=== PATIENT | female | born 1960 | race Caucasian/White ===

== ENCOUNTER → 2018-01-18 14:33 | Outpatient (CLI) | payer OTHER, MEDICAID, SELFPAY ==
[2018-01-18 15:00] LABS: BUN Creatinine Ratio 21.4 (6-22); Blood Urea Nitrogen 15 mg/dL (7-17); Calcium 9.9 mg/dL (8.4-10.2); Carbon Dioxide 29 mmol/L (22-32); Chloride 102 mmol/L (98-107); Estimated Glomerular Filt Rate > 60.0 mL/min (>60); Glucose 90 mg/dL (70-100); HEMOLYSIS < 15 (0-50); Potassium 4.4 mmol/L (3.4-5.1); Sodium 141 mmol/L (137-145)
== END ==
PROVIDERS: Family Provider Physician Assistant; PCP Physician Assistant; Visit Provider Physician Assistant
DX: I10 Essential (primary) hypertension (principal)
CPT/HCPCS: 36415; 80048

== ENCOUNTER → 2018-05-01 15:12 | Outpatient (CLI) | payer OTHER, MEDICAID, SELFPAY ==
--- NOTE | 2018-05-01 15:13 | DI.MG.S_ITS ---
BILATERAL DIGITAL SCREENING MAMMOGRAM 3D/2D WITH CAD: 05/01/2018 CLINICAL: Routine screening. Comparison is made to exams dated: 07/16/2013 mammogram, 12/31/2015 mammogram, and 08/02/2007 mammogram - [facility]. There are scattered fibroglandular elements in both breasts. Current study was also evaluated with a Computer Aided Detection (CAD) system. No significant masses, calcifications, or other findings are seen in either breast. There has been no significant interval change. IMPRESSION: NEGATIVE There is no mammographic evidence of malignancy. A 1 year screening mammogram is recommended. This exam was interpreted at Station ID: [id number]. NOTE: For mammograms, a report in lay terms will be sent to the patient. Approximately 15% of breast malignancies will not be visualized mammographically. In the management of a palpable breast mass, a negative mammogram must not discourage biopsy of a clinically suspicious lesion. Electronically Signed By: Shira tee/myriam:05/01/2018 16:06:23 letter sent: Normal Exam ACR BI-RADS Category 1: Negative 3341F
== END ==
PROVIDERS: Family Provider Physician Assistant; PCP Physician Assistant; Visit Provider Physician Assistant
DX: Z12.31 Encounter for screening mammogram for malignant neoplasm of breast (principal)
CPT/HCPCS: 77063; 77067

== ENCOUNTER → 2018-05-30 07:33 | Outpatient (CLI) | payer OTHER, SELFPAY ==
[2018-05-30 08:40] LABS: Alanine Aminotransferase 44 IU/L (9-52); Albumin 4.5 g/dL (3.5-5.0); Albumin Globulin Ratio 1.6 (1.0-2.8); Alkaline Phosphatase 62 U/L (38-126); Aspartate Aminotransferase 41 IU/L (14-36); Bilirubin Total 0.3 mg/dL (0.2-1.3); Bilirubin Unconjugated 0.1 mg/dL (0.0-1.1); Cholesterol 227 mg/dL (140-199); Globulin 2.9 g/dL (1.7-4.1); HDL Cholesterol 65 mg/dL (40-60); HEMOLYSIS < 15 (0-50); LDL Cholesterol Calculated 143 mg/dL (<100); Total Protein 7.4 g/dL (6.3-8.2); Triglycerides 93 mg/dL (35-150)
[2018-05-30 10:05] LABS: Thyroid Stimulating Hormone 3.39 uIU/mL (0.47-4.68)
== END ==
PROVIDERS: Family Provider Physician Assistant; PCP Physician Assistant; Visit Provider Physician Assistant
DX: E03.9 Hypothyroidism, unspecified (principal); Z51.81 Encounter for therapeutic drug level monitoring; E78.5 Hyperlipidemia, unspecified
CPT/HCPCS: 36415; 80061; 80076; 84443

== ENCOUNTER → 2018-11-08 12:18 | Outpatient (CLI) | payer OTHER, SELFPAY ==
[2018-11-08 13:55] LABS: Alanine Aminotransferase 46 IU/L (9-52); Albumin 4.7 g/dL (3.5-5.0); Albumin Globulin Ratio 1.7 (1.0-2.8); Alkaline Phosphatase 52 U/L (38-126); Aspartate Aminotransferase 40 IU/L (14-36); BUN Creatinine Ratio 14.3 (6-22); Bilirubin Total 0.6 mg/dL (0.2-1.3); Blood Urea Nitrogen 10 mg/dL (7-17); Calcium 10.1 mg/dL (8.4-10.2); Carbon Dioxide 26 mmol/L (22-32); Chloride 103 mmol/L (98-107); Cholesterol 224 mg/dL (140-199); Estimated Glomerular Filt Rate > 60.0 mL/min (>60); Globulin 2.8 g/dL (1.7-4.1); Glucose 79 mg/dL (70-100); HDL Cholesterol 60 mg/dL (40-60); HEMOLYSIS < 15 (0-50); LDL Cholesterol Calculated 131 mg/dL (<100); Potassium 5.2 mmol/L (3.4-5.1); Sodium 140 mmol/L (137-145); Total Protein 7.5 g/dL (6.3-8.2); Triglycerides 165 mg/dL (35-150)
[2018-11-08 14:21] LABS: Thyroid Stimulating Hormone 1.18 uIU/mL (0.47-4.68)
[2018-11-08 17:21] LABS: Creatinine Urine Random 71.6 mg/dL
[2018-11-08 17:27] LABS: Microalbumi Creatinin Ratio Ur 8.3 ug/mg CR (<30); Microalbumin Urine Random < 0.6 mg/dL (0-1.6)
== END ==
PROVIDERS: Family Provider Physician Assistant; PCP Physician Assistant; Visit Provider Physician Assistant
DX: E03.9 Hypothyroidism, unspecified (principal); E78.5 Hyperlipidemia, unspecified; I10 Essential (primary) hypertension; Z78.0 Asymptomatic menopausal state
CPT/HCPCS: 36415; 80053; 80061; 82043; 82570; 84443

== ENCOUNTER → 2019-04-27 07:42 | Outpatient (CLI) | payer OTHER, SELFPAY ==
[2019-04-27 09:32] LABS: Alanine Aminotransferase 46 IU/L (<35); Albumin 4.8 g/dL (3.5-5.0); Albumin Globulin Ratio 1.8 (1.0-2.8); Alkaline Phosphatase 59 U/L (38-126); Aspartate Aminotransferase 37 IU/L (14-36); Bilirubin Total 0.6 mg/dL (0.2-1.3); Blood Urea Nitrogen 14 mg/dL (7-17); Calcium 10.1 mg/dL (8.4-10.2); Carbon Dioxide 29 mmol/L (22-32); Chloride 103 mmol/L (98-107); Cholesterol 249 mg/dL (140-199); Estimated Glomerular Filt Rate > 60.0 mL/min (>60); Globulin 2.6 g/dL (1.7-4.1); Glucose 85 mg/dL (70-100); HDL Cholesterol 54 mg/dL (40-60); HEMOLYSIS < 15 (0-50); LDL Cholesterol Calculated 157 mg/dL (<100); Potassium 4.1 mmol/L (3.4-5.1); Sodium 139 mmol/L (137-145); Total Protein 7.4 g/dL (6.3-8.2); Triglycerides 189 mg/dL (35-150)
[2019-04-27 09:34] LABS: Thyroid Stimulating Hormone 2.41 uIU/mL (0.47-4.68)
[2019-04-27 09:36] LABS: Microalbumi Creatinin Ratio Ur 9.8 ug/mg CR (<30); Microalbumin Urine Random 1.2 mg/dL (0-1.6)
== END ==
PROVIDERS: PCP Physician Assistant; Visit Provider Physician Assistant
DX: E03.9 Hypothyroidism, unspecified (principal); E78.5 Hyperlipidemia, unspecified; I10 Essential (primary) hypertension
CPT/HCPCS: 36415; 80053; 80061; 82043; 82570; 84443

== ENCOUNTER → 2019-06-18 11:54 | Outpatient (CLI) | payer OTHER, SELFPAY ==
--- NOTE | 2019-06-18 | DI.MG.S_ITS ---
BILATERAL DIGITAL SCREENING MAMMOGRAM 3D/2D WITH CAD: 06/18/2019 CLINICAL: Routine screening. Comparison is made to exams dated: 05/01/2018 mammogram, 12/31/2015 mammogram, and 07/16/2013 mammogram - [facility]. There are scattered fibroglandular elements in both breasts. Current study was also evaluated with a Computer Aided Detection (CAD) system. No significant masses, calcifications, or other findings are seen in either breast. There has been no significant interval change. IMPRESSION: NEGATIVE There is no mammographic evidence of malignancy. A 1 year screening mammogram is recommended. This exam was interpreted at Station ID: [id number]. NOTE: For mammograms, a report in lay terms will be sent to the patient. Approximately 15% of breast malignancies will not be visualized mammographically. In the management of a palpable breast mass, a negative mammogram must not discourage biopsy of a clinically suspicious lesion. Electronically Signed By: Carlton Raygoza M.D. at/myriam:06/18/2019 12:42:27 letter sent: Normal Exam ACR BI-RADS Category 1: Negative 3341F
== END ==
PROVIDERS: PCP Physician Assistant; Visit Provider Physician Assistant
DX: Z12.31 Encounter for screening mammogram for malignant neoplasm of breast (principal)
CPT/HCPCS: 77063; 77067

== ENCOUNTER → 2019-08-14 07:23 | Outpatient (CLI) | payer OTHER, SELFPAY ==
[2019-08-14 08:09] LABS: Alanine Aminotransferase 35 IU/L (<35); Albumin 4.9 g/dL (3.5-5.0); Albumin Globulin Ratio 1.5 (1.0-2.8); Alkaline Phosphatase 58 U/L (38-126); Aspartate Aminotransferase 35 IU/L (14-36); BUN Creatinine Ratio 27.1 (6-22); Bilirubin Total 0.4 mg/dL (0.2-1.3); Blood Urea Nitrogen 19 mg/dL (7-17); Calcium 9.9 mg/dL (8.4-10.2); Carbon Dioxide 32 mmol/L (22-32); Chloride 103 mmol/L (98-107); Cholesterol 210 mg/dL (140-199); Estimated Glomerular Filt Rate > 60.0 mL/min (>60); Globulin 3.3 g/dL (1.7-4.1); Glucose 84 mg/dL (70-100); HDL Cholesterol 64 mg/dL (40-60); HEMOLYSIS < 15 (0-50); LDL Cholesterol Calculated 119 mg/dL (<100); Potassium 4.3 mmol/L (3.4-5.1); Sodium 142 mmol/L (137-145); Total Protein 8.2 g/dL (6.3-8.2); Triglycerides 135 mg/dL (35-150)
== END ==
PROVIDERS: PCP Physician Assistant; Referring Provider Physician Assistant; Visit Provider Physician Assistant
DX: Z51.81 Encounter for therapeutic drug level monitoring (principal); E78.2 Mixed hyperlipidemia; I10 Essential (primary) hypertension
CPT/HCPCS: 36415; 80053; 80061

== ENCOUNTER → 2020-01-28 11:09 | Outpatient (CLI) | payer OTHER, SELFPAY ==
--- NOTE | 2020-01-28 | DI.MRI.S_ITS ---
PROCEDURE: MR HEAD/BRAIN WO/W CON INDICATIONS: Headache TECHNIQUE: Noncontrast axial T1 spin echo, axial T2 fast spin echo, sagittal and axial FLAIR, coronal T2 fast spin echo, axial gradient echo, axial diffusion and ADC through the brain. After the administration of contrast, axial and coronal 3D VIBE or T1 spin echo with fat saturation through the brain. COMPARISON: [facility], MR, MR ANGIO HEAD WO CON, 01/28/2020, 11:25. FINDINGS: Image quality: Excellent. CSF Spaces: Basal cisterns are patent. No extra-axial fluid collections. Ventricles are normal in size and shape. Brain: No midline shift. No intracranial bleeds or masses. No abnormal intracranial enhancement. The brainstem appears normal. Diffusion-weighted images demonstrate no acute ischemic insults. No chronic ischemic insults. Normal intravascular flow voids are present. Focal calcification can be seen along the left aspect of the falx, as on series 9, image 9 and on series 10, image 17. This is not regarded to be frankly pathologic. No abnormal enhancement can be seen at this site. Skull and face: Calvarial marrow is normal in signal. Orbits appear normal. Sinuses: Sinuses and mastoids appear clear. Incidental note is made of mild leftward nasal septal deviation, with a leftward directed bony nasal septal spur. IMPRESSION: Unremarkable intracranial study, without an imaging explanation found for the patient's presenting history of headache. No masses or abnormal enhancement can be seen. No intracranial hemorrhage is seen. Dictated by: Chevy Harrison M.D. on 01/28/2020 at 11:21 Approved by: Chevy Harrison M.D. on 01/28/2020 at 11:23
--- NOTE | 2020-01-28 | DI.MRI.S_ITS ---
PROCEDURE: MR ANGIO HEAD WO CON INDICATIONS: Headache TECHNIQUE: Noncontrast axial 3-D [id number] MR angiogram, with 3-dimensional maximum intensity projection (MIP) reformats of the internal carotid arteries and posterior circulation then performed. COMPARISON: [facility], , MR HEAD/BRAIN WO/W CON, 01/28/2020, 11:37. FINDINGS: Image quality: Excellent. Anterior circulation: Intracranial internal carotid arteries demonstrate normal size and intraluminal flow signal. The flow within the paired anterior cerebral arteries is normal and symmetric. The flow within the middle cerebral arteries is normal and symmetric. The anterior communicating artery is faintly seen. No stenoses, occlusions, or aneurysms. Posterior circulation: Visualized portions of the vertebral arteries demonstrate normal caliber, and join to form a normal appearing basilar artery. There is a prominent right posterior communicating artery seen, with an accompanying diminutive right P1 segment. This is attributed to a type origin of the right posterior cerebral artery, which is considered to be a normal developmental variant of typically no clinical consequence. The flow within the posterior cerebral arteries is normal and symmetric. No stenoses, occlusions, or aneurysms. IMPRESSION: No significant intracranial arterial abnormality is detected. No aneurysms are seen. Dictated by: Chevy Harrison M.D. on 01/28/2020 at 11:20 Approved by: Chevy Harrison M.D. on 01/28/2020 at 11:21
== END ==
PROVIDERS: PCP Internal Medicine; Referring Provider Internal Medicine; Visit Provider Internal Medicine
DX: R51 Headache (principal)
CPT/HCPCS: 70544; 70553

== ENCOUNTER → 2020-07-15 15:20 | Outpatient (CLI) | payer OTHER, SELFPAY ==
--- NOTE | 2020-07-15 | DI.MG.S_ITS ---
BILATERAL DIGITAL SCREENING MAMMOGRAM 3D/2D WITH CAD: 07/15/2020 CLINICAL: Routine screening. Comparison is made to exams dated: 06/18/2019 mammogram, 05/01/2018 mammogram, and 12/31/2015 mammogram - [facility]. There are scattered fibroglandular elements in both breasts. Current study was also evaluated with a Computer Aided Detection (CAD) system. No significant masses, calcifications, or other findings are seen in either breast. There has been no significant interval change. IMPRESSION: NEGATIVE There is no mammographic evidence of malignancy. A 1 year screening mammogram is recommended. This exam was interpreted at Station ID: [id number]. NOTE: For mammograms, a report in lay terms will be sent to the patient. Approximately 15% of breast malignancies will not be visualized mammographically. In the management of a palpable breast mass, a negative mammogram must not discourage biopsy of a clinically suspicious lesion. Electronically Signed By: Vinod martinez/myriam:07/15/2020 16:20:42 letter sent: Normal Exam ACR BI-RADS Category 1: Negative 3341F
== END ==
PROVIDERS: PCP Internal Medicine; Referring Provider Internal Medicine; Visit Provider Internal Medicine
DX: Z12.31 Encounter for screening mammogram for malignant neoplasm of breast (principal)
CPT/HCPCS: 77063; 77067

== ENCOUNTER → 2020-09-15 09:10 | Outpatient (CLI) | payer OTHER, SELFPAY ==
[2020-09-15 13:34] LABS: COVID19 -Nasal RAPID Negative (Negative)
== END ==
PROVIDERS: PCP Student in an Organized Health Care Education/Training Program; Visit Provider Surgery
DX: Z20.822 Contact with and (suspected) exposure to COVID-19 (principal)
CPT/HCPCS: 87635; C9803

== ENCOUNTER 2020-09-16 08:07 | Day surgery (SDC) | payer OTHER, SELFPAY ==
--- NOTE | 2020-09-16 | PATH_ITS ---
[facility] Accession Number: [id number] . 01 Material submitted: . colon - FLAT POLYP AT 120CM . 01 Clinical history: . SDC . 02 Diagnosis: Colon, Flat Polyp at 120 cm, Biopsy: Tubular adenoma. MRV 09/18/2020 1010 Local . 02 Electronically signed: . Randee Benitez MD, Pathologist NPI- [id number] . 01 Gross description: . FLAT POLYP AT 120CM: Received in formalin is 1 fragment(s) of allan, soft tissue measuring 0.3 x 0.2 x 0.2 cm submitted entirely in 1 cassette(s) /DOMONIQUE 09/17/2020 2302 Local . 02 Pathologist provided ICD-10: D12.6 . 02 CPT . 577094 Performed at: 01 [facility] [address] [id number] MD Vinod Garcia MD Phone: [phone] Performed at: 02 [facility] [address] [place], [place] [id number] MD Randee Benitez MD Phone: [phone]
[2020-09-16] MEDS: SODIUM CHLORIDE 0.9% 1,000 ML 200 ML IV (08:23)
[2020-09-16 08:34] VITALS: BP 135/79; PULSE 60; RESP 14; TEMP 36.7; O2SAT 100
[2020-09-16 08:35] VITALS: BMI 32.9
--- NOTE | 2020-09-16 09:29 | PM.HP.1 ---
History of Present Illness History of Present Illness Date Patient Seen: 09/16/20 Time Patient Seen: 09:30 Chief complaint: SDC Narrative: This is a 60-year-old woman here for screening colonoscopy. She has a long history of chronic constipation. She has had anal fissures. She says her last colonoscopy was about 5 years ago. She denies any personal or family history of colon polyps or colon cancers. She reports that otherwise she is quite healthy. ROS: Thirteen system review is otherwise negative other than as mentioned below and in HPI. PE: GENERAL: Well groomed and cooperative. Appears stated age. Answers questions promptly and appropriately. Vital signs noted. HENT: Normocephalic, atraumatic. Hearing intact. EYES: Conjunctiva pink, sclera white, no periorbital swelling. CARDIOVASCULAR: Regular rate. No pedal edema. RESPIRATORY: Non-tachypneic, breathing comfortably on room air. GASTROINTESTINAL: Abdomen soft and non-distended GENITALURINARY: No flank tenderness. MUSCULOSKELETAL: Equal tone and mass bilaterally. SKIN: Warm, dry, soft, appropriate color for ethnicity. No other lesions, rashes, or wounds. NEURO: Alert and Oriented X 3. No gross sensory deficits, or cognitive issues. PSYCH: Appropriate affect and mood. Patient History Medical History Arthritis Chickenpox (Unknown) Colon polyps (Unknown) Fibroids (Unknown) GERD (gastroesophageal reflux disease) (Unknown) Hyperlipemia (Unknown) Hypertension (Unknown) Low back pain Postmenopausal Family & Social History Family History Father Heart disease Hypertension Stroke Mother Heart disease Hypertension Social History: household members spouse Tobacco & Substance use: Tobacco type cigarettes Smoking Status Current every day smoker alcohol intake former alcohol intake frequency a few times a month Substance Use Type does not use Meds Home Medications and Allergies Home Medications Medication Instructions Recorded Confirmed Type Aspirin 81 mg PO DAILY 01/18/18 09/16/20 History levothyroxine 50 mcg tablet 50 mcg PO QAM #90 tab 01/16/19 09/16/20 Rx tramadol 50 mg tablet See Rx Instructions PO BEDTIME #45 01/16/19 09/16/20 Rx tab estradiol 1 mg tablet 1 mg PO QDAY #90 tab 07/30/19 09/16/20 Rx rosuvastatin 10 mg tablet 10 mg PO BEDTIME #30 tab 04/07/20 09/16/20 Rx enalapril maleate 20 mg PO QDAY 09/16/20 09/16/20 History Allergies Allergy/AdvReac Type Severity Reaction Status Date / Time No Known Drug Allergies Allergy Verified 09/16/20 08:22 Exam Vital Signs (past 8 hours): - 09/16/20 08:34 Temperature 98.0 F Pulse Rate 60 Respiratory Rate 14 Blood Pressure 135/79 Pulse Oximetry 100 Oxygen Delivery Method Room Air Assessment & Plan Assessment and plan (1) Chronic constipation: Status: Acute (2) Anal fissure: Status: Acute Assessment & Plan narrative: Risks and benefits of screening colonoscopy and possible polypectomy were discussed with the patient including risk of bleeding, perforation, need for additional procedures, risks of anesthesia. The patient desires to proceed with the colonoscopy procedure. COVID-19 COVID-19 status: Negative Result date/Date tested (Pos, Neg/Pending): 09/15/20 Time Spent With Patient Time with patient: 15-24 minutes Quality VTE Deep Vein Thrombosis/Pulmonary Embolism Present on Admission: No MIPS - Admit Advanced Care Plan / Current Medications Measures: #47 ? Advanced Care Plan Clinician documentation instruction: document at admission. [] I confirmed that the patient's Advance Care Plan is present, code status is documented, or surrogate decision maker is listed in the patient?s medical record. [SATISFIES MIPS PERFORMANCE] If Yes, Stop Here [] The patient?s Advance Care plan is not present because: (select) [MIPS PERFORMANCE EXCEPTION/EXCLUSION] [] I confirmed today that the patient does not wish or was not able to name a surrogate decision maker or provide an Advance Care Plan. [] Hospice care is currently being provided or has been provided this calendar year [] I did NOT confirm today the presence of an Advance Care Plan or surrogate decision maker documented within the patient's medical record. [DOES NOT SATISFY MIPS PERFORMANCE] #130 - Documentation of Current Medications in the Medical Record Clinician documentation instruction: use macro the first time you see a patient. [] I have utilized all available immediate resources to obtain, update, or review the patient?s current medications. [SATISFIES MIPS PERFORMANCE] If Yes, Stop Here [] The patient is not eligible for medication reconciliation; the patient is in an emergent medical situation where delaying treatment would jeopardize the patient?s health. [MIPS PERFORMANCE EXCEPTION/EXCLUSION] [] I did NOT confirm, update or review the patient's current list of medications today. [DOES NOT SATISFY MIPS PERFORMANCE] MIPS - CL Central Venous Catheter Placement Measure: #76 ? Prevention of Central Venous Catheter (CVC) ? Related Bloodstream Infection Clinician documentation instruction: use macro every time you place a central line. [] All elements of Maximal Sterile Barrier Technique, including hand hygiene, skin prep, and sterile ultrasound technique (if used) were followed. [SATISFIES MIPS PERFORMANCE] If Yes, Stop Here [] If ?No?, the medical reason all elements were NOT used for medical reason [] (ex. emergent condition). [] Maximal Sterile Barrier Technique was not followed, no reason provided [DOES NOT SATISFY MIPS PERFORMANCE] MIPS - DC Heart Failure Measures: #5 - Heart Failure (HF): Angiotensin-Converting Enzyme (DEO) Inhibitor or Angiotensin Receptor Barbara (ARB) Therapy for Left Ventricular Systolic Dysfunction (LVSD) and #8 - Heart Failure (HF): Beta-Barbara Therapy for Left Ventricular Systolic Dysfunction (LVSD) Clinician documentation instruction: use macro at every CHF discharge. [] The patient has current or prior documentation of left ventricular ejection fraction (LVEF) less than 40%, or moderate or severely depressed left ventricular systolic function. Answer both: [SATISFIES MIPS PERFORMANCE] [] The patient was prescribed or already taking an Angiotensin-Converting Enzyme (DEO) Inhibitor, or Angiotensin Receptor Barbara (ARB). [] The patient was prescribed or already taking a beta-barbara. If Yes to Both, Stop Here [] Patient not prescribed/taking: [MIPS PERFORMANCE EXCEPTION/EXCLUSION] [] DEO or ARB for medical/patient/system reason(s) including [] (ex. allergy, intolerance, contraindication) [] Beta-barbara for medical/patient/system reason(s) including [] (ex. allergy, intolerance, contraindication) [] Patient not prescribed/taking: [DOES NOT SATISFY MIPS PERFORMANCE] [] DEO or ARB, no reason given [] Beta-barbara, no reason given
--- NOTE | 2020-09-16 09:32 | P.OP.ENDO_ITS ---
Operative Date/Time/Diagnoses Date of procedure: 09/16/20 Time of procedure: 09:32 Pre-op diagnosis: Chronic constipation, anal fissure, due for screening colonoscopy Post-op diagnosis: other (Single polyp, benign appearing) Procedure & Clinicians Study performed: Colonoscopy Procedural sedation performed by the endoscopist Polypectomy with Jumbo forceps Same procedure as scheduled: Yes Indications: Due for screening colonoscopy Surgeon: Morena Gallo Procedure Notes SCOAP/Timeout: Performed Procedure in detail: The patient was brought to the room and placed in left lateral decubitus position with all bony prominences padded. A time-out was performed and then the patient was given procedural sedation starting with 4 mg of Versed [id number]] mcg of fentanyl. A total of 5 mg of Versed and 200 micro g of fentanyl were given for the entire procedure. Vitals were monitored throughout the procedure and remained stable. Once adequately sedated, the procedure was begun. A rectal exam was performed revealing no abnormalities. The colonoscope was then introduced to the rectum and advanced to the cecum in the usual fashion.]The cecum was identified by the appendiceal orifice, the mucosal tri- fold, and the ileocecal valve. The scope was then retracted while rotating side to side and examining each mucosal fold. The prep was not adequate to see anything smaller than 5 mm. There was some adherent stool to the leach of the colon. We were not able to wash it down because it was very bulky and fibrous. There was a single polyp found at 120 cm and removed with Jumbo forceps. It was adenomatous/benign-appearing. Moderate diverticulosis was seen in the sigmoid colon. 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 The scope was then withdrawn from the rectum the procedure was concluded. The patient tolerated the procedure well and was transferred to the PACU in stable condition. Scope withdrawal time: 11 Sedation minutes: 20 Findings: diverticulosis and polyp Specimen(s): other (Single polyp) Complications: none Impression: Diverticulosis, small benign-appearing polyp Post-procedure Recommendations: Colonscopy in 5 years (Due to prep inadequate to see anything smaller than 5 mm. On future colonoscopy low residual diet for 1 week prior to scope, and 2 day prep should be done) and Other recommendation (Consider referral to Colorectal surgery or gastroenterology for evaluation and treatment of dysmotility) Follow up: as needed Disposition: PACU
[2020-09-16] MEDS: MIDAZOLAM 5 MG/5 ML VIAL IV (09:45)
[2020-09-16] MEDS: fentaNYL 250 MCG/5 ML INJ IV (09:47)
[2020-09-16 10:10] VITALS: BP 96/50; PULSE 51; RESP 19; TEMP 36.5; O2SAT 98
[2020-09-16 10:14] VITALS: BP 107/71; PULSE 69; RESP 14; TEMP 36.5; O2SAT 100
[2020-09-16 10:20] VITALS: BP 113/71; PULSE 59; RESP 16; TEMP 36.5; O2SAT 100
[2020-09-16 10:31] VITALS: BP 103/67; PULSE 52; RESP 16; TEMP 36.2; O2SAT 98
--- NOTE | 2020-09-16 11:08 | SUR.PHASEII ---
1057 Denies pain/nausea/light-headedness. Ambulated to bathroom, voided. Stable on feet. Declined more fluids in OPD while waiting for spouse to arrive. Pleasant and appreciative.
== END 2020-09-16 10:57 | disposition home or self-care (01) ==
PROVIDERS: PCP Student in an Organized Health Care Education/Training Program; Referring Provider Surgery; Visit Provider Surgery
PROC: 0DJD8ZZ Inspection of Lower Intestinal Tract, Via Natural or Artificial Opening Endoscopic (ICD-10-PCS; CPT 45378; principal; 2020-09-16 09:15)
DX: Z12.11 Encounter for screening for malignant neoplasm of colon (principal); Z86.010 Personal history of colon polyps; K59.09 Other constipation; K60.1 Chronic anal fissure; I10 Essential (primary) hypertension; E78.5 Hyperlipidemia, unspecified; K21.9 Gastro-esophageal reflux disease without esophagitis; Z53.09 Procedure and treatment not carried out because of other contraindication; K57.30 Diverticulosis of large intestine without perforation or abscess without bleeding; K64.0 First degree hemorrhoids; D12.6 Benign neoplasm of colon, unspecified
CPT/HCPCS: 45380; 99152; J2250; J3010

== ENCOUNTER → 2020-11-21 11:36 | Outpatient (CLI) | payer OTHER, SELFPAY ==
--- NOTE | 2020-11-21 11:37 | DI.US.S_ITS ---
PROCEDURE: US PELVIC COMPLETE INDICATIONS: PMB TECHNIQUE: Real-time scanning was performed of the pelvic organs, with image documentation. Additional endovaginal scanning was necessary due to incomplete visualization of the adnexal and endometrial structures by transabdominal scanning. COMPARISON: [facility], , PELVIC COMPLETE, 09/30/2015, 14:18. [facility], , PELVIC COMPLETE, 09/26/2014, 16:43. FINDINGS: Uterus: Uterus is normal in size at 7.8 x 8.8 x 10.0 cm. The endometrium measures 8.9 mm in combined thickness. Uterine fibroids are present, measuring on the right anteriorly in the intramural space up to 4.8 cm and on the left/midline posteriorly in the intramural space measuring up to 7.2 cm. Ovaries: Not seen bilaterally. Other: No pathologic free abdominal or pelvic fluid. IMPRESSION: The ovaries are not seen bilaterally, which is likely a manifestation of postmenopausal ovarian atrophy and overlying bowel gas. Two separate fibroids are present, which produce shadowing and heterogeneity that reduces quality of visualization of the endometrial lining. The endometrial lining itself measures up to 9 mm and this is considered an abnormal finding especially in the setting of postmenopausal bleeding. Early endometrial carcinoma would be suspected, gynecological consultation should be obtained in biopsy likely is warranted. Dictated by: Alonzo Fernandes M.D. on 11/21/2020 at 16:56 Approved by: Alonzo Fernandes M.D. on 11/21/2020 at 17:02
== END ==
PROVIDERS: PCP Student in an Organized Health Care Education/Training Program; Referring Provider Obstetrics & Gynecology; Visit Provider Obstetrics & Gynecology
DX: N95.0 Postmenopausal bleeding (principal); R93.89 Abnormal findings on diagnostic imaging of other specified body structures; D25.1 Intramural leiomyoma of uterus
CPT/HCPCS: 76830; 76856

== ENCOUNTER → 2021-01-01 07:25 | Outpatient (CLI) | payer OTHER, SELFPAY ==
[2021-01-01 08:43] LABS: Add Manual Diff / Slide Review NO; Basophils Absolute Auto 0 /uL (0-100); Basophils Percent Auto 0.4 % (0-2); Eosinophils Absolute Auto 400 /uL (0-450); Eosinophils Percent Auto 4.8 % (2-4); Hematocrit 36.5 % (36-46); Hemoglobin 12.4 g/dL (12.0-16.0); Lymphocytes Absolute Auto 3700 /uL (1100-4500); Lymphocytes Percent Auto 42.8 % (25-40); Mean Corpuscular HGB Conc 33.8 % (30-36); Mean Corpuscular Hemoglobin 29.7 PG (26-34); Mean Corpuscular Volume 87.7 fL (80-100); Monocytes Absolute Auto 600 /uL (0-900); Monocytes Percent Auto 6.7 % (3-14); Neutrophils Absolute Auto 4000 /uL (1500-7000); Neutrophils Percent Auto 45.3 % (50-75); Platelet Count 225 X10^3/uL (150-400); Red Blood Cell Count 4.17 X10^6/uL (4.0-5.2); Red Cell Distribution Width 13.2 % (11.6-14.8); White Blood Cell Count 8.7 X10^3/uL (4.5-11.0)
== END ==
PROVIDERS: PCP Student in an Organized Health Care Education/Training Program; Referring Provider Obstetrics & Gynecology; Visit Provider Obstetrics & Gynecology
DX: N95.0 Postmenopausal bleeding (principal); R53.83 Other fatigue
CPT/HCPCS: 36415; 85025

== ENCOUNTER 2021-02-20 08:40 | Day surgery (SDC) | payer OTHER, SELFPAY ==
[2021-01-27 08:11] VITALS: BMI 33.8
[2021-02-20] VITALS (7 sets, daily range): BP systolic 124–152; BP diastolic 63–78; PULSE 49–57; RESP 12–16; TEMP 36.1–36.6; O2SAT 97–100; BMI 33.8
--- NOTE | 2021-02-20 | PATH_ITS ---
[facility] Accession Number: [id number] . 01 Material submitted: . PART A: endometrium - ENDOMETRIAL POLYP PART B: endometrium - ENDOMETRIAL CURETINGS . 02 Diagnosis: A. Endometrial Polyp: Portions of weakly proliferative endometrium; negative for glandular hyperplasia, cytologic atypia, or malignancy. Most tissue fragments demonstrate associated myometrium negative for atypia or malignancy. . B. Endometrial Curettings: Portions of weakly proliferative endometrial tissue with patchy regions of stromal breakdown; negative for glandular hyperplasia, cytologic atypia, or malignancy. Squamous mucosa with reactive changes; negative for squamous dysplasia or malignancy. V 02/23/2021 1410 Local . 02 Electronically signed: . Shirley Baird MD, Pathologist NPI- [id number] . 01 Gross description: . Part A: ENDOMETRIAL POLYP: Received in formalin are multiple fragment(s) of allan, soft tissue measuring 1.5 x 0.6 x 0.4 cm in aggregate submitted entirely in 1 cassette(s) Part B: ENDOMETRIAL CURETINGS: Received in formalin are multiple fragment(s) of allan, soft tissue measuring 3.0 x 0.5 x 0.2 cm in aggregate submitted entirely in 1 cassette(s) /NIXON 02/21/2021 0534 Local . 02 Pathologist provided ICD-10: N95.0 . 02 CPT . 533912, [id number] Performed at: 01 [facility] [address], [place], [place] [id number] MD Vinod Garcia MD Phone: [phone] Performed at: 02 [facility] [address] , [place], [place] [id number] MD Randee Benitez MD Phone: [phone]
[2021-02-20] MEDS: LACTATED RINGERS 1,000 ML 42 ML IV (10:09)
--- NOTE | 2021-02-20 11:36 | PM.PREOP ---
Pre-operative Note COVID-19 COVID-19 status: Negative Result date/Date tested (Pos, Neg/Pending): 02/20/21 Interval Note History & Physical reviewed/Exam performed by Physician: Yes Changes to H&P: No
--- NOTE | 2021-02-20 12:16 | SUR.OPER ---
Lithotomy on padded OR bed, head on pillow, arms secured on padded arm boards at <90 degrees abduction. Legs secured in padded yellow fins stirrups.
--- NOTE | 2021-02-20 12:42 | P.OP_ITS ---
Operative Date/Time/Diagnoses Date of procedure: 02/20/21 Time of procedure: 12:42 Pre-op diagnosis: Postmenopausal bleeding Post-op diagnosis: same Procedure & Clinicians Procedure: Hysteroscopy with resection of polyps and D&C Same procedure as scheduled: Yes Indications: Postmenopausal bleeding Surgeon: Tabatha Lino Click Yes if Unassisted: Yes Anesthesia Type: General Operative Notes Findings: 2 areas of polyps otherwise normal appearing endometrium Closure Type: not applicable Specimen(s): other (Endometrial polyps and uterine curettage) Estimated Blood Loss (mL): 5 Blood products transfused: none Procedure in detail: The patient was brought to the operating room where she underwent general anesthesia. She was placed in low stirrups. She was prepped and draped in usual sterile fashion with pulsatile stockings in place and functional, warming in place. No antibiotics were indicated. A check system was reviewed with the staff in the room prior to beginning the case. Her bladder was drained with in and out catheter. A single-tooth tenaculum was placed on the anterior lip of the cervix and the uterus dilated to #8 Hegar dilator. The hysteroscope was placed into the uterus with a sorbitol solution running in under constant hood ction. The resecting loop set at 80 W of cutting was used to resect the polyps down to the level of the endometrium. A endometrial curettage was performed. The polyps and the endometrial curettage were sent to pathology. The patient went to recovery room in good condition counts of instruments and sponges were correct. The sorbitol solution I=O approximately 1200 mL. Complications: none Post-operative Disposition: same day surgery Plan for aftercare: Home when awake and stable
[2021-02-20] MEDS: OXYCODONE/ACETAMINOPHEN 5/325 TABLET 1 TAB PO (13:12)
[2021-02-20] MEDS: ONDANSETRON 4 MG/2 ML INJ IV (13:13)
== END 2021-02-20 13:25 | disposition home or self-care (01) ==
PROVIDERS: Specialist; PCP Student in an Organized Health Care Education/Training Program; Referring Provider Obstetrics & Gynecology; Visit Provider Obstetrics & Gynecology
PROC: 0UDB8ZZ Extraction of Endometrium, Via Natural or Artificial Opening Endoscopic (ICD-10-PCS; CPT 58558; principal; 2021-02-20 11:45)
DX: N95.0 Postmenopausal bleeding (principal); Z01.812 Encounter for preprocedural laboratory examination; Z20.822 Contact with and (suspected) exposure to COVID-19; E03.9 Hypothyroidism, unspecified; I10 Essential (primary) hypertension; E78.5 Hyperlipidemia, unspecified
CPT/HCPCS: 58558; 87635; J1100; J1885; J2250; J2405; J2704; J3010

== ENCOUNTER → 2021-02-20 09:02 | Outpatient (CLI) | payer OTHER, SELFPAY ==
[2021-02-20 09:34] LABS: COVID19 -Nasal RAPID Negative (Negative)
== END ==
PROVIDERS: PCP Student in an Organized Health Care Education/Training Program; Visit Provider Specialist
DX: Z01.812 Encounter for preprocedural laboratory examination (principal); Z20.822 Contact with and (suspected) exposure to COVID-19
CPT/HCPCS: 87635

== ENCOUNTER → 2021-06-24 18:13 | Outpatient (ROUT) | payer OTHER, SELFPAY ==
[2021-06-24 18:24] LABS: Alanine Aminotransferase 35 IU/L (<35); Albumin 4.7 g/dL (3.5-5.0); Albumin Globulin Ratio 1.7 (1.0-2.8); Alkaline Phosphatase 50 U/L (38-126); Amylase 63 U/L (30-110); Aspartate Aminotransferase 40 IU/L (14-36); BUN Creatinine Ratio 21.8 (6-22); Bilirubin Total 0.4 mg/dL (0.2-1.3); Blood Urea Nitrogen 17 mg/dL (7-17); Calcium 10.5 mg/dL (8.4-10.2); Carbon Dioxide 31 mmol/L (22-32); Chloride 105 mmol/L (98-107); Estimated Glomerular Filt Rate > 60.0 mL/min (>60); Globulin 2.8 g/dL (1.7-4.1); Glucose 84 mg/dL (80-110); HEMOLYSIS 15 (0-50); Hematocrit 39.3 % (36-46); Hemoglobin 13.2 g/dL (12.0-16.0); Lipase 486 U/L (23-300); Mean Corpuscular HGB Conc 33.7 % (30-36); Mean Corpuscular Hemoglobin 28.6 PG (26-34); Platelet Count 220 X10^3/uL (150-400); Red Blood Cell Count 4.62 X10^6/uL (4.0-5.2); Red Cell Distribution Width 13.7 % (11.6-14.8); Sodium 142 mmol/L (137-145); Total Protein 7.5 g/dL (6.3-8.2); White Blood Cell Count 10.3 X10^3/uL (4.5-11.0)
== END ==
PROVIDERS: PCP Student in an Organized Health Care Education/Training Program; Visit Provider Student in an Organized Health Care Education/Training Program
DX: R10.31 Right lower quadrant pain (principal)
CPT/HCPCS: 80053; 82150; 83690; 85027

== ENCOUNTER → 2021-07-07 12:15 | Outpatient (CLI) | payer OTHER, SELFPAY ==
--- NOTE | 2021-07-07 12:17 | DI.CT.S_ITS ---
PROCEDURE: CT ABDOMEN PELVIS W CON INDICATIONS: Right lower quadrant abdominal pain TECHNIQUE: After the administration of oral and intravenous contrast, axial sections were acquired from the lung bases to the pubic symphysis. Coronal and sagittal reformats were performed. For radiation dose reduction, the following was used: automated exposure control, adjustment of mA and/or kV according to patient size. COMPARISON:[facility], , PELVIC COMPLETE, 11/21/2020, 11:58. FINDINGS: Image quality: Excellent. Lung bases: Unremarkable. Heart: No significant findings. ABDOMEN: Liver: Unremarkable. Gallbladder: Is contracted Biliary ducts: Unremarkable. Pancreas: Unremarkable. Spleen: Unremarkable. Adrenal Glands: Unremarkable. Kidneys and Ureters: Unremarkable. Stomach and Bowel: Small hiatal hernia. Stomach, small bowel loops, and colon are unremarkable. Normal appendix is present. Peritoneum: No abnormal intraperitoneal fluid. No free air. Ventral Wall: No hernia. Abdominal Nodes: No retroperitoneal or mesenteric adenopathy by size criteria. Vessels: Aorta and inferior vena cava are normal in size. PELVIS: Pelvic Organs: There is a subserosal left posterior uterine mass measuring roughly 86 mm diameter. Bladder: Unremarkable. Pelvic Nodes: No enlarged lymph nodes. Miscellaneous: No inguinal hernias are seen. Bones: Unremarkable. IMPRESSION: 1. No acute process. 2. Normal appendix. 3. Pro uterine fibroid. Dictated by: Briseida Alvarado M.D. on 07/07/2021 at 13:59 Approved by: Briseida Alvarado M.D. on 07/07/2021 at 14:03
== END ==
PROVIDERS: PCP Student in an Organized Health Care Education/Training Program; Referring Provider Student in an Organized Health Care Education/Training Program; Visit Provider Student in an Organized Health Care Education/Training Program
DX: D25.2 Subserosal leiomyoma of uterus (principal); K44.9 Diaphragmatic hernia without obstruction or gangrene; R10.11 Right upper quadrant pain
CPT/HCPCS: 74177

== ENCOUNTER → 2021-08-28 11:53 | Outpatient (CLI) | payer OTHER, SELFPAY ==
--- NOTE | 2021-08-28 11:55 | DI.US.S_ITS ---
PROCEDURE: US PELVIC COMPLETE INDICATIONS: POSTMENOPAUSAL BLEEDING TECHNIQUE: Real-time scanning was performed of the pelvic organs, with image documentation. Additional endovaginal scanning was necessary due to incomplete visualization of the adnexal and endometrial structures by transabdominal scanning. COMPARISON: [facility], US, US PELVIC COMPLETE, 11/21/2020, 11:58. FINDINGS: Uterus: Uterus is anteverted and enlarged in size at 10.1 x 8.3 x 8.8 cm. The myometrium is heterogeneous. The endometrium is ill-defined and cannot be accurately assessed. There are 2 intramural fibroids, largest measuring 8.0 x 5.7 x 6.2 cm and the smaller 4.4 x 5.6 x 5.3 cm, which appears similar to prior examination. Ovaries: Ovaries are not visualized. No adnexal masses seen. Other: No pathologic free abdominal or pelvic fluid. IMPRESSION: 1. 2 intramural fibroids with the largest measuring up to 8.0 cm, similar to prior examination. 2. The endometrial complex is ill-defined and cannot be accurately assessed. If indicated, pre and post contrast gynecologic protocol MRI could be performed for further assessment. We strive to produce accurate, complete, and clear reports of imaging services. To assist us in improving patient care, this report was composed using standard report templates and voice recognition software. Therefore, it may contain abnormal punctuation, insertions and/or omissions. Occasional wrong-word or sound-alike substitutions may occur. Though we review the report and make efforts to correct it, we do recommend that the report be read carefully in proper context to recognize any text inaccuracies. Dictated by: Lauri Navarro [facility] Interpreted: Inocente Barnett MD on 08/28/2021 at 13:38 Transcribed by: JULIANE on 09/01/2021 at 14:14 Approved by: Inocente Barnett M.D. on 09/10/2021 at 9:52
== END ==
PROVIDERS: PCP Student in an Organized Health Care Education/Training Program; Referring Provider Obstetrics & Gynecology; Visit Provider Obstetrics & Gynecology
DX: N95.0 Postmenopausal bleeding (principal); D25.1 Intramural leiomyoma of uterus
CPT/HCPCS: 76830; 76856

== ENCOUNTER → 2022-08-25 08:12 | Outpatient (CLI) | payer OTHER, SELFPAY ==
--- NOTE | 2022-08-25 | DI.MG.S_ITS ---
BILATERAL DIGITAL SCREENING MAMMOGRAM 3D/2D WITH CAD: 08/25/2022 CLINICAL: Routine screening. Comparison is made to exams dated: 06/18/2019 mammogram, 07/15/2020 mammogram, and 05/01/2018 mammogram - [facility]. There are scattered areas of fibroglandular density in both breasts (category b / 25%-50% glandular tissue). Current study was also evaluated with a Computer Aided Detection (CAD) system. No significant masses, calcifications, or other findings are seen in either breast. There has been no significant interval change. IMPRESSION: NEGATIVE There is no mammographic evidence of malignancy. A 1 year screening mammogram is recommended. Based on the Tyrer Cuzick model (a risk assessment model) the patient's lifetime risk is 6.1% and her 10 year risk is 2.5%. According to the ACR, ACS, and NCCN guidelines, an annual breast MRI exam along with mammogram is recommended if the patient's lifetime risk is 20% or greater. This exam was interpreted at Station ID: [id number]. NOTE: For mammograms, a report in lay terms will be sent to the patient. Approximately 15% of breast malignancies will not be visualized mammographically. In the management of a palpable breast mass, a negative mammogram must not discourage biopsy of a clinically suspicious lesion. Electronically Signed By: Nathan Delong M.D., jr/myriam:08/26/2022 12:46:53 letter sent: Normal Exam ACR BI-RADS Category 1: Negative 3341F
== END ==
PROVIDERS: PCP Student in an Organized Health Care Education/Training Program; Referring Provider Student in an Organized Health Care Education/Training Program; Visit Provider Student in an Organized Health Care Education/Training Program
DX: Z12.31 Encounter for screening mammogram for malignant neoplasm of breast (principal)
CPT/HCPCS: 77063; 77067

== ENCOUNTER 2022-12-31 11:08 | Emergency (ER) | payer OTHER, SELFPAY ==
[2022-12-31 11:16] VITALS: BP 139/77; PULSE 58; RESP 18; TEMP 36.4; O2SAT 100; BMI 29.0
--- NOTE | 2022-12-31 11:20 | DI.RAD.S_ITS ---
PROCEDURE: XR HAND LT MIN 3V INDICATIONS: Patient punctured 4th finger TECHNIQUE: 3 views of the hand(s) acquired. COMPARISON: [facility], , HAND 3V LEFT, 01/22/2015, 14:40. FINDINGS: Bones: No fractures or dislocations. Carpal bones are normally aligned. No suspicious bony lesions. Moderate osteoarthritic changes are present, most pronounced at the triscaphe joint and the 1st carpometacarpal joint. Soft tissues: There is a 0.8 cm calcified density in the radial aspect of the hand just proximal to the 1st metacarpal. IMPRESSION: 1. Moderate osteoarthritis. 2. A 0.8 cm calcified density within the soft tissue just proximal the 1st metacarpal. Etiology uncertain. Consider advanced imaging such as MRI if clinically indicated. Dictated by: Radha Aponte M.D. on 12/31/2022 at 12:49 Approved by: Radha Aponte M.D. on 12/31/2022 at 12:52
[2022-12-31] MEDS: TET,DIPH,PERTUSS(ACELL),VAC/PF 0.5 ML SYRINGE IM (11:59)
--- NOTE | 2022-12-31 12:16 | ED.UPPEXIN ---
HPI - Extremity Injury (Upper) General Chief Complaint: Extremity Injury, Upper Stated Complaint: lac poss stitches Time Seen by Provider: 12/31/22 11:13 Source: patient Mode of arrival: Ambulatory History of Present Illness HPI narrative: 62-year-old female smoker with history of hypertension presents with an accidental laceration to the ring finger of her left hand. She was using a sharp knife to cut through some plastic when it slipped and cut her on the palmar surface of her finger. She has some bleeding and pain but denies any numbness or tingling. She has full range of motion. Her tetanus will need to be updated today Related Data Home Medications Medication Instructions Recorded Confirmed enalapril maleate 10 mg tablet 20 mg PO QDAY 09/16/20 08/31/21 aspirin 81 mg tablet,delayed 81 mg PO DAILY 01/27/21 08/31/21 release (Jaqueline Low Dose Aspirin) Previous Rx's Medication Instructions Recorded levothyroxine 50 mcg tablet 50 mcg PO QAM #90 tabs 01/16/19 rosuvastatin 10 mg tablet 10 mg PO BEDTIME #30 tabs 04/07/20 estradiol 1 mg tablet 1 mg PO QDAY #90 tabs 04/06/21 progesterone micronized 100 mg 100 mg PO DAILY #90 caps 08/31/21 capsule cephalexin 500 mg capsule 500 mg PO Q6H 7 days #28 caps 12/31/22 Allergies Allergy/AdvReac Type Severity Reaction Status Date / Time No Known Drug Allergies Allergy Verified 08/31/21 11:31 Review of Systems Review of Systems Narrative: GENERAL: Denies chills, fatigue, malaise, fever, sweats. HEENT: Denies sinus pain, ear pain, sore throat, difficulty swallowing, dizziness. RESPIRATORY: Denies dyspnea, cough, wheezing, hemoptysis, sputum. CARDIOVASCULAR: Denies chest pain, palpitations, orthopnea, edema, GASTROINTESTINAL: Denies nausea, vomiting, abdominal pain, diarrhea, constipation, melena. : Denies dysuria, frequency, incontinence, hematuria, urinary retention. MUSCULOSKELETAL: See HPI SKIN: See HPI NEUROLOGIC: Denies weakness, headache, numbness, change in speech, confusion, seizures, incoordination. PSYCHIATRIC: No concerning psychosocial issues. 12 point review of systems is negative except for those stated above Patient History Medical History Arthritis Chickenpox (Unknown) Colon polyps (Unknown) Fibroids (Unknown) GERD (gastroesophageal reflux disease) (Unknown) Hyperlipemia (Unknown) Hypertension (Unknown) Low back pain Postmenopausal Family History Father Heart disease Hypertension Stroke Mother Heart disease Hypertension Social History household members: spouse Smoking Status: Current every day smoker second hand exposure: No alcohol intake: current substance use type: does not use Smoking Status: Current every day smoker alcohol intake frequency: holidays/special occasions only Substance Use Type: does not use Exam Narrative Exam Narrative: GEN: AOx3 and in mild distress EYES: Pupils are equal, round, and reactive to light and accommodation. Extraoccular muscles are intact bilaterally. There is no subconjunctival hemorrhage or exudate. CHEST: Lungs are clear to auscultation bilaterally and free of wheezes, rales, or rhonchi. Heart rate is regular rhythm, there are no murmurs, clicks, rubs, or gallops. There is no chest wall tenderness. ABD: Abdomen is soft and nontender. There is no guarding or rebound. Bowel sounds are normal in all 4 quadrants. There is no mass or organomegaly. EXT: 1 cm laceration on the palmar surface of left ring finger, there is a very small through and through component on the opposite side. No active bleeding, no obvious foreign body, patient has sensation intact. She has full strength and range of motion. Full painless ROM of all extremities with no loss of sensation or strength. SKIN: Warm, pink, and dry. No erythema or rash Initial Vital Signs Initial Vital Signs: Vital Signs Temperature 97.6 F 12/31/22 11:16 Pulse Rate 58 L 12/31/22 11:16 Respiratory Rate 18 12/31/22 11:16 Blood Pressure 139/77 12/31/22 11:16 Pulse Oximetry 100 12/31/22 11:16 Oxygen Delivery Method Room Air 12/31/22 11:16 Course Orders Ordered: ED Orders 12/31/22 11:20 XR hand LT min 3V Stat Discontinued Medications Diphtheria/Tetanus/Acell Pertussis (Tet,Diph,Pertuss(Acell),Vac/Pf 0.5 Ml Syringe) 0.5 ml IM .ONCE ONE Stop: 12/31/22 11:56 Last Admin: 12/31/22 11:59 Dose: 0.5 ml Documented By: Vital Signs Vital signs: Vital Signs - 8 hr 12/31/22 12:36 Pulse Rate 54 L Respiratory Rate 16 Blood Pressure 136/67 Pulse Oximetry 100 Oxygen Delivery Method Room Air MDM - Extremity Injury (Upper) MDM Narrative Medical decision making narrative: Patient with a clean laceration on her left hand just distal to the MCP of her left hand at the base of the 4th finger. There is no obvious tendon involvement she has full strength and range of motion, no sensory deficit, no obvious foreign body. Tetanus is updated, cleaned with chlorhexidine 2 sutures on 1 side of the cut, patient placed on antibiotics. She is encouraged to follow up in about 10 days to have sutures removed. Antibiotics into your pharmacy of choice. Discharge Plan Departure Patient Disposition: Home Clinical Impression: Laceration of finger of left hand Instructions: DI for Laceration Repair Activity Restrictions/Additional Instructions: *You have been diagnosed with [left 4th finger laceration. The wound has been repaired with sutures, tetanus updated *What to do: *Please continue to take your regular medications as directed. [x ] New medication prescriptions sent to your pharmacy: [ ] [ ] New medication written as a paper prescription [ ] No new medications given * Please keep the wound clean and dry to the best of your ability. Please monitor for signs of infection such as redness to the skin or increasing pain. Have the sutures/fiorella removed by your doctor in about 7 days. If you are unable to get into your doctor, we would be happy to remove the sutures/fiorella in that same timeframe. *Return to Emergency Department if you should have any new, worsening or concerning symptoms, such as [fever greater than 101 F, shaking chills, worsening pain, persistent vomiting or other bothersome symptoms] Prescriptions: New cephalexin 500 mg capsule 500 mg PO Q6H 7 Days Qty: 28 0RF No Action rosuvastatin 10 mg tablet 10 mg PO BEDTIME Qty: 30 0RF Rx Instructions: Repeat lab work estradiol 1 mg tablet 1 mg PO QDAY Qty: 90 3RF levothyroxine 50 mcg tablet 50 mcg PO QAM Qty: 90 3RF progesterone micronized 100 mg capsule 100 mg PO DAILY Qty: 90 3RF aspirin [Jaqueline Low Dose Aspirin] 81 mg Tablet,Delayed Release (Dr/Ec) 81 mg PO DAILY enalapril maleate 10 mg tablet 20 mg PO QDAY Referrals: Mirta Lieberman, CORNELIUS [Primary Care Provider] - Stand Alone Forms: Patient Portal/API
[2022-12-31 12:36] VITALS: BP 136/67; PULSE 54; RESP 16; O2SAT 100
== END 2022-12-31 12:33 | disposition home or self-care (01) ==
PROVIDERS: Emergency Provider Emergency Medicine; PCP Student in an Organized Health Care Education/Training Program
DX: S61.215A Laceration without foreign body of left ring finger without damage to nail, initial encounter (principal); W26.0XXA Contact with knife, initial encounter; Z23 Encounter for immunization
CPT/HCPCS: 12001; 73130; 90471; 99283; 99284; 90715

== ENCOUNTER → 2023-08-19 09:45 | Outpatient (CLI) | payer OTHER, SELFPAY ==
[2023-08-19 11:20] LABS: Thyroid Stimulating Hormone 1.41 uIU/mL (0.47-4.68)
[2023-08-19 11:29] LABS: HIV 1 & 2 Ab/Ag 4th Gen Combo NEGATIVE (NEGATIVE)
== END ==
PROVIDERS: PCP Student in an Organized Health Care Education/Training Program; Referring Provider Student in an Organized Health Care Education/Training Program; Visit Provider Student in an Organized Health Care Education/Training Program
DX: Z11.59 Encounter for screening for other viral diseases (principal); Z11.4 Encounter for screening for human immunodeficiency virus [HIV]; E03.9 Hypothyroidism, unspecified
CPT/HCPCS: 36415; 84443; 87389; 87522

== ENCOUNTER → 2024-03-01 14:44 | Outpatient (CLI) | payer OTHER, SELFPAY ==
--- NOTE | 2024-03-01 | DI.MG.S_ITS ---
BILATERAL DIGITAL SCREENING MAMMOGRAM 3D/2D WITH CAD: 03/01/2024 CLINICAL: Routine screening. Comparison is made to exams dated: 08/25/2022 mammogram, 07/15/2020 mammogram, and 06/18/2019 mammogram - [facility]. There are scattered areas of fibroglandular density in both breasts (category b / 25%-50% glandular tissue). Current study was also evaluated with a Computer Aided Detection (CAD) system. There is an oval focal asymmetry in the left breast at 1 o'clock posterior depth. This is more prominent. No other significant masses, calcifications, or other findings are seen in either breast. IMPRESSION: INCOMPLETE: NEEDS ADDITIONAL IMAGING EVALUATION The oval focal asymmetry in the left breast has a differential diagnosis of a cyst and is indeterminate. Additional views with possible ultrasound are recommended. Based on the Tyrer Cuzick model (a risk assessment model) the patient's lifetime risk is 6.0% and her 10 year risk is 2.6%. According to the ACR, ACS, and NCCN guidelines, an annual breast MRI exam along with mammogram is recommended if the patient's lifetime risk is 20% or greater. This exam was interpreted at Station ID: [id number]. NOTE: For mammograms, a report in lay terms will be sent to the patient. Approximately 15% of breast malignancies will not be visualized mammographically. In the management of a palpable breast mass, a negative mammogram must not discourage biopsy of a clinically suspicious lesion. Electronically Signed By: Andrew Sanders M.D. [facility]/:03/02/2024 13:57:53 letter sent: Additional Imaging Needed ACR BI-RADS Category 0: Incomplete 3340F
== END ==
PROVIDERS: PCP Student in an Organized Health Care Education/Training Program; Referring Provider Student in an Organized Health Care Education/Training Program; Visit Provider Student in an Organized Health Care Education/Training Program
DX: Z12.31 Encounter for screening mammogram for malignant neoplasm of breast (principal); R92.323 Mammographic fibroglandular density, bilateral breasts
CPT/HCPCS: 77063; 77067

== ENCOUNTER → 2024-04-12 09:14 | Outpatient (CLI) | payer OTHER, SELFPAY ==
--- NOTE | 2024-04-12 09:14 | DI.MG.S_ITS ---
UNILATERAL LEFT DIGITAL DIAGNOSTIC MAMMOGRAM 3D/2D WITH ADDITIONAL VIEWS: 04/12/2024 CLINICAL: Additional evaluation requested from prior study. Comparison is made to exams dated: 03/01/2024 mammogram, 08/25/2022 mammogram, and 07/15/2020 mammogram - [facility]. There are scattered areas of fibroglandular density (category b / 25%-50% glandular tissue). There is an oval focal asymmetry in the left breast at 1 o'clock posterior depth. This is seen in additional views. This is more prominent. No other significant masses or calcifications are seen in the breast. IMPRESSION: INCOMPLETE: NEED ADDITIONAL IMAGING EVALUATION The oval focal asymmetry in the left breast resembles a cyst and is indeterminate. An ultrasound is recommended for further evaluation and is scheduled to immediately follow this examination. Based on the Tyrer Cuzick model (a risk assessment model) the patient's lifetime risk is 5.8% and her 10 year risk is 2.6%. According to the ACR, ACS, and NCCN guidelines, an annual breast MRI exam along with mammogram is recommended if the patient's lifetime risk is 20% or greater. This exam was interpreted at Station ID: [id number]. NOTE: For mammograms, a report in lay terms will be sent to the patient. Approximately 15% of breast malignancies will not be visualized mammographically. In the management of a palpable breast mass, a negative mammogram must not discourage biopsy of a clinically suspicious lesion. Electronically Signed By: Carlton Raygoza M.D. aty/:04/12/2024 14:06:55 letter sent: Additional Imaging Needed ACR BI-RADS Category 0: Incomplete: Need Additional Imaging Evaluation
--- NOTE | 2024-04-12 09:15 | DI.US.S_ITS ---
LIMITED ULTRASOUND OF LEFT BREAST AND AXILLA: 04/12/2024 CLINICAL: Patient returns today to evaluate a focal asymmetry in the left breast. Comparison is made to exams dated: 04/12/2024 mammogram, 03/01/2024 mammogram, 08/25/2022 mammogram, 07/15/2020 mammogram, 06/18/2019 mammogram, and 05/01/2018 mammogram - [facility]. Color flow and real-time ultrasound of the left breast 2 o'clock, and axilla regions were performed. Guerra scale images of the real-time examination were reviewed. There is a benign 0.6 cm x 0.4 cm x 0.4 cm wider than tall oval cyst in the left breast at 2 o'clock posterior depth 12 cm from the nipple. This oval cyst is anechoic with a well-defined boundary and posterior acoustic enhancement. This correlates with mammography findings. Color flow imaging demonstrates that there is no vascularity present. IMPRESSION: BENIGN There is no sonographic evidence of malignancy. The 0.6 cm x 0.4 cm x 0.4 cm wider than tall oval cyst in the left breast is consistent with a simple cyst and is benign. A 1 year screening mammogram is recommended. Findings and recommendations were conveyed to the patient during today's evaluation. This exam was interpreted at Station ID: [id number]. Electronically Signed By: Carlton Raygoza M.D. aty/:04/12/2024 14:08:16 letter sent: Normal Exam ACR BI-RADS Category 2: Benign
== END ==
PROVIDERS: PCP Student in an Organized Health Care Education/Training Program; Referring Provider Student in an Organized Health Care Education/Training Program; Visit Provider Student in an Organized Health Care Education/Training Program
DX: R92.8 Other abnormal and inconclusive findings on diagnostic imaging of breast (principal); N60.02 Solitary cyst of left breast
CPT/HCPCS: 76642; 77065; G0279